=== PATIENT | female | born 1970 | race Caucasian/White ===

== ENCOUNTER 2017-09-17 09:56 | Emergency (ER) | payer OTHER ==
[~2017-09-17] VITALS: Ht 157.5 cm; Wt 81.7 kg
[2017-09-17] MEDS ORDERED: WELLBUTRIN XL300 MG PO (10:06)
[2017-09-17] MEDS ORDERED: PERCOCET 10-321 EACH PO (10:06)
[2017-09-17] MEDS ORDERED: NEURONTIN 300300 M1 PO (10:06)
[2017-09-17 12:44] VITALS: BP 117/53
== END 2017-09-17 12:45 | disposition home or self-care (01) ==
LOC: ER 09:56
DX: T84.216A Breakdown (mechanical) of internal fixation device of vertebrae, initial encounter (principal); X58.XXXA Exposure to other specified factors, initial encounter

== ENCOUNTER 2018-11-04 21:45 | Emergency (ER) | payer OTHER ==
[~2018-11-04] VITALS: Ht 157.5 cm; Wt 81.7 kg
[~2018-11-04 21:45] MED LIST: NEURONTIN 300300 M1 PO; PERCOCET 10-321 EACH PO; WELLBUTRIN XL300 MG PO
[2018-11-04] MEDS ORDERED: VALIUM5 MG PO (21:51)
[2018-11-04] MEDS ORDERED: PRAZOSIN HCL5 MG PO (21:51)
[2018-11-04 23:23] VITALS: BP 105/40
== END 2018-11-04 23:23 | disposition home or self-care (01) ==
LOC: ER 21:45
DX: S93.492A Sprain of other ligament of left ankle, initial encounter (principal); F17.210 Nicotine dependence, cigarettes, uncomplicated; Z88.1 Allergy status to other antibiotic agents; Z88.6 Allergy status to analgesic agent; Z91.040 Latex allergy status; W10.8XXA Fall (on) (from) other stairs and steps, initial encounter; Y93.89 Activity, other specified; Y92.89 Other specified places as the place of occurrence of the external cause; Y99.8 Other external cause status